=== PATIENT | female | born 1950 | race Caucasian/White ===

== ENCOUNTER 2019-03-18 06:40 | Day surgery (SDC) | payer OTHER ==
[~2019-03-18] VITALS: Ht 172.7 cm; Wt 96.6 kg
[2019-03-18] MEDS ORDERED: CLINDAMYCIN 600 mg/50mL D5W 50 ML IV ONE (08:00)
[2019-03-18] MEDS ORDERED: LEVOFLOXACIN 500 MG/D5W 100 ML IV ONE (08:00)
[2019-03-18] MEDS ORDERED: ONDANSETRON HCL 4 MG/2 ML VIAL IVP ONE (11:00)
[2019-03-18] MEDS ORDERED: MIDAZOLAM HCL 5 MG/5 ML VIAL IVP ONE (11:00)
[2019-03-18] MEDS ORDERED: ATROPINE SULFATE 0.4 MG/ML VIAL IVP ONE (11:00)
[2019-03-18] MEDS ORDERED: LR 1,000 ML IV.SOLN IV ONE (11:00)
[2019-03-18] MEDS ORDERED: fentaNYL CITRATE 250 MCG/5 ML AMP IV ONE (11:00)
[2019-03-18] MEDS ORDERED: PROPOFOL 200MG/ 20ML VIAL (DIPRIVAN) IV ONE (11:00)
[2019-03-18] MEDS ORDERED: BUPIVACAINE /PF 0.25% 30 ML VIAL INJ ONE (11:00)
[2019-03-18] MEDS ORDERED: SEVOFLURANE 15 MIN GAS INH ONE (11:00)
[2019-03-18] MEDS ORDERED: WATER FOR IRRIGATION,STERILE 1,000 ML IRRIG.SOLN IR ONE (11:00)
[2019-03-18] MEDS ORDERED: METOCLOPRAMIDE HCL 10 MG/2 ML VIAL IVP PRN (12:00)
[2019-03-18] MEDS ORDERED: MORPHINE 4 MG/ML INJ. SYRINGE IVP PRN ×3 (12:00)
[2019-03-18] MEDS ORDERED: LR 1,000 ML IV SCH (12:00)
[2019-03-18] MEDS ORDERED: D5/0.45 NS 1,000 ML IV SCH (12:46)
[2019-03-18] MEDS ORDERED: HYDROcodone/ACETAMIN 5-325 MG TAB (NORCO/ VICODIN) PO PRN ×2 (13:00)
[2019-03-18] MEDS ORDERED: HYDROmorphone 1 MG INJ. 1 MG/ML AMPUL IVP PRN (13:00)
[2019-03-18 13:46] VITALS: BP_SYST 138
== END 2019-03-18 15:40 | disposition home or self-care (01) ==
LOC: SDS 06:40 → SMU 06:40 → EDSTATUS 09:00 → SDS 15:40
PROVIDERS: ATTEND Colon & Rectal Surgery
DX: C50.911 Malignant neoplasm of unspecified site of right female breast (principal); I10 Essential (primary) hypertension; E66.01 Morbid (severe) obesity due to excess calories; F41.9 Anxiety disorder, unspecified; M10.9 Gout, unspecified; I35.0 Nonrheumatic aortic (valve) stenosis; Z88.0 Allergy status to penicillin; Z98.84 Bariatric surgery status
CPT/HCPCS: 78195; 88305; 88307; 88342; A9541; J0461; J1956; J2250; J2405; J2704; J3010; J3490; J7120